=== PATIENT | male | born 1955 | race Caucasian/White ===

== ENCOUNTER 2016-09-22 15:35 | Observation (INO) | payer OTHER ==
[~2016-09-22] VITALS: Ht 172.7 cm; Wt 76.1 kg
[~2016-09-22 15:35] MED LIST: ACCUPRIL5 MG PO; ALTOPREV20 MG PO; AMOXICILLIN500 MG PO; ASPIRIN325 MG PO; AUGMENTIN875 MG PO; AZOR 10/40 M1 TABLET PO; BENAZEPRIL HCL40 MG PO; CLONIDINE HCL0.1 MG PO; CYMBALTA20 MG PO; ECOTRIN325 MG PO; Ecotrin PO; HUMULIN N100 UNITS/ SC; HYCODAN SYRUP480 ML PO; HYDROCHLOROTHIA25 MG PO; LANTUS 10100 UNITS/ SC; LANTUS 3 M100 UNITS1 SC; LANTUS100 UNIT/1 SQ; LEVEMIR100 UNIT/2 SC; LEVOFLOXACIN750 MG PO; LIPITOR5 MG PO; LOPRESSOR50 MG PO; LOTENSIN10 MG PO; LOVASTATIN20 MG PO; Lopressor PO; Lotensin PO; NEURONTIN100 MG PO; NORVASC10 MG PO; NOVOLIN,HU100 UNITS/ SC; NOVOLOG MI100 UNIT/2 SQ; NOVOLOG PE100 UNITS/ SC; PHENERGAN-CODE120 ML PO; PLAVIX75 MG PO; PRAVACHOL10 MG PO; TOPROL XL50 MG PO; VERAPAMIL HCL80 MG PO; ZITHROMAX250 MG PO; [UNRECOGNIZED DRUG - REMARK]
[2016-09-22 16:20] LABS: BASOPHIL COUNT 0.1 K/uL (0-0.1); EOSINOPHIL (%) 4.1 % (0-5); EOSINOPHIL COUNT 0.5 K/uL (0-0.3); HEMATOCRIT 39.8 % (38.0-50.0); IMMATURE GRANULOCYTE (%) 1.3 % (0.0-0.7); IMMATURE GRANULOCYTE COUNT 0.1 K/uL; INSTRUMENT ABS NEUTROPHIL CT 6.7 K/uL; LYMPHOCYTE COUNT 2.7 K/uL (1.0-2.8); MCH 30.6 PG (29.0-34.0); MCHC 34.4 G/DL (30.0-36.0); MCV 88.8 FL (86-99); MEAN PLAT.VOLUME 9.4 uM^3 (9.0-12.4); MONOCYTE COUNT 0.8 K/uL (0-0.8); NEUTROPHIL COUNT 6.7 K/uL (1.8-6.4); PLATELET COUNT 229 K/uL (156-360); RBC DIS.WIDTH-SD 39.2 % (39-53); RED BLOOD COUNT 4.48 M/uL (4.00-5.50); WHITE BLOOD COUNT 10.9 K/uL (4.1-10.2)
[2016-09-22 16:32] LABS: CHLORIDE 104 mEq/L (99-109); POTASSIUM 4.3 mEq/L (3.7-5.4); SODIUM 137 mEq/L (136-147)
[2016-09-22 16:34] LABS: GLUCOSE 124 mg/dL (70-99)
[2016-09-22 16:35] LABS: ANION GAP 11 MEQ/L (2-14)
[2016-09-22 16:36] LABS: TOTAL BILIRUBIN 0.8 mg/dL (0.0-1.0)
[2016-09-22 16:38] LABS: ALKALINE PHOSPHATASE 67 IU/L (3-129); GFR ESTIMATE (CALCULATED) 34 mL/min/
[2016-09-22 16:39] LABS: UREA NITROGEN (BUN) 41 mg/dL (9-23)
[2016-09-22 16:41] LABS: LIPASE 10 U/L (1.0-51.0)
[2016-09-22 16:43] LABS: TROP-I INTERPRETATION NEGATIVE; TROPONIN-I < 0.01 ng/mL (0.0-0.30)
[2016-09-22 18:03] LABS: ADD MIUA? YES; BILIRUBIN NEGATIVE; BLOOD SMALL; COLOR YELLOW ((YELLOW)); GLUCOSE (STRIP) NEGATIVE; KETONES NEGATIVE; LEUKOCYTES NEGATIVE; NITRITE NEGATIVE; PROTEIN (STRIP) 100; UROBILINOGEN 0.2 MG/DL (0.2-1.0)
[2016-09-22 18:17] LABS: BACTERIA NONE SEEN /HPF; EPITHELIAL CELLS RARE /HPF; HYALINE CASTS 0-5 /LPF; MUCUS TRACE /LPF; RED BLOOD CELLS 0-5 /HPF (0-5); UCUL ADDED? NO; WHITE BLOOD CELLS 0-5 /HPF (0-5)
[2016-09-22] MEDS ORDERED: NOVOLOG MI100 UNIT/M SC ×2 (19:48)
[2016-09-22] MEDS ORDERED: HYDROCHLOROTHIA25 MG PO (19:49)
[2016-09-22] MEDS ORDERED: NEURONTIN300 MG PO (19:49)
[2016-09-22] MEDS ORDERED: METFORMIN HCL1000 MG PO (19:49)
[2016-09-22] MEDS ORDERED: LEVAQUIN500 MG PO (19:50)
[2016-09-22 21:08] LABS: HDL CHOLESTEROL 24 MG/DL (Desirable>=40); LDL CHOLESTEROL 65 mg/dL (Desirable<100); NON-HDL CHOLESTEROL 87 mg/dL (Desirable<160); TOTAL CHOLESTEROL 111 mg/dL (Desirable<200); TRIGLYCERIDES 111 MG/DL (Normal: <150)
[2016-09-22 21:52] LABS: Estimated Average Glucose 183 mg/dL (70-123)
[2016-09-22 23:18] LABS: TROP-I INTERPRETATION NEGATIVE; TROPONIN-I < 0.01 ng/mL (0.0-0.30)
[2016-09-23] VITALS: BP 120/69
[2016-09-23 04:00] VITALS: BP 133/86
[2016-09-23 05:39] LABS: BASOPHIL COUNT 0.1 K/uL (0-0.1); EOSINOPHIL (%) 5.3 % (0-5); EOSINOPHIL COUNT 0.5 K/uL (0-0.3); HEMATOCRIT 36.9 % (38.0-50.0); IMMATURE GRANULOCYTE (%) 0.6 % (0.0-0.7); IMMATURE GRANULOCYTE COUNT 0.1 K/uL; LYMPHOCYTE COUNT 2.7 K/uL (1.0-2.8); MCH 30.2 PG (29.0-34.0); MCHC 33.6 G/DL (30.0-36.0); MEAN PLAT.VOLUME 9.6 uM^3 (9.0-12.4); MONOCYTE (%) 7.7 % (3-12); MONOCYTE COUNT 0.7 K/uL (0-0.8); NEUTROPHIL (%) 55.7 % (45-76); PLATELET COUNT 241 K/uL (156-360); RBC DIS.WIDTH-SD 39.2 % (39-53); WHITE BLOOD COUNT 8.9 K/uL (4.1-10.2)
[2016-09-23 06:05] LABS: TROP-I INTERPRETATION NEGATIVE; TROPONIN-I < 0.01 ng/mL (0.0-0.30)
[2016-09-23 06:33] LABS: ALKALINE PHOSPHATASE 54 IU/L (3-129); ANION GAP 7 MEQ/L (2-14); CHLORIDE 108 MEQ/L (99-109); DIRECT BILIRUBIN 0.1 mg/dL (0.0-0.3); GFR ESTIMATE (CALCULATED) 38 mL/min/; POTASSIUM 4.1 MEQ/L (3.7-5.4); SAMPLE HEMOLYSIS CHECK 0; SAMPLE ICTERIC CHECK 0; SAMPLE LIPEMIA CHECK 0; SODIUM 138 MEQ/L (136-147); TOTAL BILIRUBIN 0.5 MG/DL (0.0-1.0); UREA NITROGEN (BUN) 36 mg/dL (9-23)
[2016-09-23 06:36] LABS: GLUCOSE 75 mg/dL (70-99)
[2016-09-23 08:09] VITALS: BP 147/76
[2016-09-23 12:05] VITALS: BP 141/87
[2016-09-23] MEDS ORDERED: BACTRIM,SEPT1 TABLET PO (12:50)
== END 2016-09-23 14:04 | disposition home or self-care (01) ==
LOC: EME → EDBD 15:35 → 5SOUTH 19:31 → EDOF 19:31 → 5SOUTH 19:31
PROVIDERS: Emergency Medicine; Internal Medicine
DX: R55 Syncope and collapse (principal); I12.9 Hypertensive chronic kidney disease with stage 1 through stage 4 chronic kidney disease, or unspecified chronic kidney disease; N18.3 Chronic kidney disease, stage 3 (moderate); E11.65 Type 2 diabetes mellitus with hyperglycemia; E11.43 Type 2 diabetes mellitus with diabetic autonomic (poly)neuropathy; S91.101A Unspecified open wound of right great toe without damage to nail, initial encounter; S91.102A Unspecified open wound of left great toe without damage to nail, initial encounter; X58.XXXA Exposure to other specified factors, initial encounter; Z79.4 Long term (current) use of insulin; G40.909 Epilepsy, unspecified, not intractable, without status epilepticus; K21.9 Gastro-esophageal reflux disease without esophagitis; F41.9 Anxiety disorder, unspecified; F32.9 Major depressive disorder, single episode, unspecified; G89.29 Other chronic pain; M54.9 Dorsalgia, unspecified; I25.10 Atherosclerotic heart disease of native coronary artery without angina pectoris; I25.2 Old myocardial infarction; Z86.73 Personal history of transient ischemic attack (TIA), and cerebral infarction without residual deficits; F17.210 Nicotine dependence, cigarettes, uncomplicated
CPT/HCPCS: 70450; 71010; 80048; 80053; 80061; 80076; 81003; 82948; 83036; 83690; 84484; 85025; 87651 90; 93005; 99281; 99285; G0378; J1644; J1815; J2405; J7030

== ENCOUNTER 2016-10-09 07:02 | Emergency (ER) | payer OTHER ==
[~2016-10-09] VITALS: Ht 177.8 cm; Wt 75.7 kg
[~2016-10-09 07:02] MED LIST changes: +BACTRIM,SEPT1 TABLET PO; +LEVAQUIN500 MG PO; +METFORMIN HCL1000 MG PO; +NEURONTIN300 MG PO; +NOVOLOG MI100 UNIT/M SC
[2016-10-09] MEDS ORDERED: PERCOCET 5/31 TABLET PO (10:54)
[2016-10-09] MEDS ORDERED: FLEXERIL10 MG PO (10:54)
[2016-10-09] MEDS ORDERED: MOTRIN800 MG PO (10:54)
[2016-10-09 11:27] VITALS: BP 183/101
== END 2016-10-09 12:12 | disposition home or self-care (01) ==
LOC: EME 07:02
DX: S40.011A Contusion of right shoulder, initial encounter (principal); S16.1XXA Strain of muscle, fascia and tendon at neck level, initial encounter; S91.302A Unspecified open wound, left foot, initial encounter; R51 Headache; W10.9XXA Fall (on) (from) unspecified stairs and steps, initial encounter; M75.01 Adhesive capsulitis of right shoulder; E11.9 Type 2 diabetes mellitus without complications; I10 Essential (primary) hypertension; E78.5 Hyperlipidemia, unspecified; Z95.5 Presence of coronary angioplasty implant and graft; Z79.4 Long term (current) use of insulin; Z79.82 Long term (current) use of aspirin; F17.200 Nicotine dependence, unspecified, uncomplicated
CPT/HCPCS: 70450; 72125; 73000; 73030; 73630; 99281; 99284

== ENCOUNTER 2016-12-30 05:43 | Day surgery (SDC) | payer OTHER ==
[~2016-12-30] VITALS: Ht 170.2 cm; Wt 77.1 kg
[~2016-12-30 05:43] MED LIST changes: +FLEXERIL10 MG PO; +HUMALOG100 UNIT/1 SC; +MOTRIN800 MG PO; +PERCOCET 5/31 TABLET PO
[2016-12-30 06:23] LABS: POINT-OF-CARE METER ID UU14174212
[2016-12-30 06:34] VITALS: BP 159/85
[2016-12-30 09:15] LABS: POINT-OF-CARE METER ID UU13113675
[2016-12-30 11:11] VITALS: BP 150/88
[2016-12-30 12:21] VITALS: BP 175/78
== END 2016-12-30 13:09 | disposition home or self-care (01) ==
LOC: SDC 05:43
PROVIDERS: Podiatrist Foot & Ankle Surgery
DX: E11.621 Type 2 diabetes mellitus with foot ulcer (principal); L97.519 Non-pressure chronic ulcer of other part of right foot with unspecified severity; L97.829 Non-pressure chronic ulcer of other part of left lower leg with unspecified severity; M89.9 Disorder of bone, unspecified; M79.675 Pain in left toe(s); M79.674 Pain in right toe(s); R26.2 Difficulty in walking, not elsewhere classified; I10 Essential (primary) hypertension; E78.5 Hyperlipidemia, unspecified; I73.9 Peripheral vascular disease, unspecified; I25.10 Atherosclerotic heart disease of native coronary artery without angina pectoris; M19.90 Unspecified osteoarthritis, unspecified site; Z86.73 Personal history of transient ischemic attack (TIA), and cerebral infarction without residual deficits; F17.200 Nicotine dependence, unspecified, uncomplicated; Z79.82 Long term (current) use of aspirin; Z88.0 Allergy status to penicillin
CPT/HCPCS: 82948; J0330; J0360; J1100; J2250; J2405; J3010; S0020

== ENCOUNTER 2017-10-24 16:35 | Inpatient (IN) | payer OTHER ==
[~2017-10-24] VITALS: Ht 172.7 cm; Wt 78.6 kg
[~2017-10-24 16:35] MED LIST changes: -NOVOLOG MI100 UNIT/M SC
[2017-10-24 17:11] LABS: HEMATOCRIT 42.1 % (38.0-50.0); HEMOGLOBIN 14.9 G/DL (12.5-16.6); MCH 31.3 PG (29.0-34.0); MCHC 35.4 G/DL (30.0-36.0); MCV 88.4 FL (86-99); PLATELET COUNT 258 K/uL (156-360); RBC DIS.WIDTH-CV 12.7 % (11.8-14.6); RBC DIS.WIDTH-SD 41.1 % (39-53); RED BLOOD COUNT 4.76 M/uL (4.00-5.50); WHITE BLOOD COUNT 11.3 K/uL (4.1-10.2)
[2017-10-24 17:19] LABS: CHLORIDE 103 mEq/L (99-109); POTASSIUM 4.5 mEq/L (3.7-5.4); SODIUM 135 mEq/L (136-147)
[2017-10-24 17:21] LABS: GLUCOSE 342 mg/dL (70-99)
[2017-10-24 17:25] LABS: CREATININE 2.1 mg/dL (0.6-1.3); GFR ESTIMATE (CALCULATED) 34 mL/min/ (58.99-99999)
[2017-10-24 17:26] LABS: UREA NITROGEN (BUN) 27 mg/dL (9-23)
[2017-10-24 19:54] LABS: APPEARANCE CLEAR ((CLEAR)); BILIRUBIN NEGATIVE; BLOOD NEGATIVE; COLOR YELLOW ((YELLOW)); GLUCOSE (STRIP) >=500; KETONES NEGATIVE; LEUKOCYTES NEGATIVE; NITRITE NEGATIVE; PROTEIN (STRIP) 100; SPECIFIC GRAVITY 1.023 (1.000-1.030)
[2017-10-24 20:04] LABS: BACTERIA NONE SEEN /HPF; EPITHELIAL CELLS NONE SEEN /HPF; MUCUS NONE SEEN /LPF; RED BLOOD CELLS 0-5 /HPF (0-5); WHITE BLOOD CELLS 0-5 /HPF (0-5)
[2017-10-24 20:17] LABS: MAGNESIUM 2.1 mg/dL (1.3-2.7)
[2017-10-24 20:24] LABS: CREATINE KINASE 332 IU/L (1-294)
[2017-10-24 20:29] LABS: TROP-I INTERPRETATION NEGATIVE; TROPONIN-I < 0.01 ng/mL (0.0-0.30)
[2017-10-24] MEDS ORDERED: DIOVAN HCT 31 TABLE1 PO (20:51)
[2017-10-25] VITALS (10 sets, daily range): BP systolic 87–194; BP diastolic 52–100
[2017-10-25 02:34] LABS: TROP-I INTERPRETATION NEGATIVE; TROPONIN-I < 0.01 ng/mL (0.0-0.30)
[2017-10-25 08:05] LABS: BASOPHIL COUNT 0.1 K/uL (0-0.1); EOSINOPHIL (%) 4.4 % (0-5); EOSINOPHIL COUNT 0.4 K/uL (0-0.3); HEMATOCRIT 37.9 % (38.0-50.0); IMMATURE GRANULOCYTE (%) 0.6 % (0.0-0.7); LYMPHOCYTE (%) 30.4 % (15-42); LYMPHOCYTE COUNT 2.7 K/uL (1.0-2.8); MCH 30.4 PG (29.0-34.0); MCV 89.2 FL (86-99); MONOCYTE (%) 6.4 % (3-12); MONOCYTE COUNT 0.6 K/uL (0-0.8); NEUTROPHIL (%) 57.2 % (45-76); PLATELET COUNT 214 K/uL (156-360); RBC DIS.WIDTH-CV 12.8 % (11.8-14.6); RBC DIS.WIDTH-SD 42.3 % (39-53); RED BLOOD COUNT 4.25 M/uL (4.00-5.50); WHITE BLOOD COUNT 8.8 K/uL (4.1-10.2)
[2017-10-25 08:06] LABS: HEMOGLOBIN 12.9 G/DL (12.5-16.6)
[2017-10-25 08:27] LABS: TROP-I INTERPRETATION NEGATIVE; TROPONIN-I < 0.01 ng/mL (0.0-0.30)
[2017-10-25 08:29] LABS: CHLORIDE 109 MEQ/L (99-109); CREATININE 1.9 MG/DL (0.6-1.3); GFR ESTIMATE (CALCULATED) 38 mL/min/ (58.99-99999); GLUCOSE 268 mg/dL (70-99); POTASSIUM 4.6 MEQ/L (3.7-5.4); SODIUM 136 MEQ/L (136-147); UREA NITROGEN (BUN) 28 mg/dL (9-23)
[2017-10-26] VITALS (7 sets, daily range): BP systolic 138–1558; BP diastolic 77–90
[2017-10-26] MEDS ORDERED: VALSARTAN80 MG PO (14:36)
== END 2017-10-26 19:58 | disposition home or self-care (01) | DRG 684 ==
LOC: EME 16:35 → EDOF 22:09 → ENRESERV 22:11 → 5SOUTH 23:45
PROVIDERS: Hospitalist; Physician Assistant
DX: N17.9 Acute kidney failure, unspecified (principal); E11.649 Type 2 diabetes mellitus with hypoglycemia without coma; I95.1 Orthostatic hypotension; T46.5X5A Adverse effect of other antihypertensive drugs, initial encounter; S01.21XA Laceration without foreign body of nose, initial encounter; S00.81XA Abrasion of other part of head, initial encounter; S00.83XA Contusion of other part of head, initial encounter; S20.219A Contusion of unspecified front wall of thorax, initial encounter; W19.XXXA Unspecified fall, initial encounter; I12.9 Hypertensive chronic kidney disease with stage 1 through stage 4 chronic kidney disease, or unspecified chronic kidney disease; E11.22 Type 2 diabetes mellitus with diabetic chronic kidney disease; N18.3 Chronic kidney disease, stage 3 (moderate); I25.10 Atherosclerotic heart disease of native coronary artery without angina pectoris; E11.42 Type 2 diabetes mellitus with diabetic polyneuropathy; E11.65 Type 2 diabetes mellitus with hyperglycemia; E78.5 Hyperlipidemia, unspecified; F12.90 Cannabis use, unspecified, uncomplicated; G40.909 Epilepsy, unspecified, not intractable, without status epilepticus; K21.9 Gastro-esophageal reflux disease without esophagitis; F32.9 Major depressive disorder, single episode, unspecified; F41.9 Anxiety disorder, unspecified; G89.29 Other chronic pain; M54.9 Dorsalgia, unspecified; F17.210 Nicotine dependence, cigarettes, uncomplicated; Z79.4 Long term (current) use of insulin; Z86.73 Personal history of transient ischemic attack (TIA), and cerebral infarction without residual deficits; Z95.5 Presence of coronary angioplasty implant and graft; Z88.1 Allergy status to other antibiotic agents
CPT/HCPCS: 70450; 70486; 71046; 71250; 80048; 81003; 82550; 82948; 83735; 84484; 85025; 85027; 93005; 99281; 99285; G0378; J0360; J1644; J1815; J7030